=== PATIENT | male | born 1955 | race Two or more races ===

== ENCOUNTER 2019-04-13 14:08 | Emergency (ER) | payer OTHER ==
[~2019-04-13] VITALS: Ht 170.2 cm; Wt 54.0 kg
[2019-04-13 21:17] VITALS: BP 130/77
== END 2019-04-13 21:23 | disposition home or self-care (01) ==
LOC: ER 14:08
DX: H35.30 Unspecified macular degeneration (principal); H33.011 Retinal detachment with single break, right eye; E78.00 Pure hypercholesterolemia, unspecified; Z98.890 Other specified postprocedural states
CPT/HCPCS: 99283

== ENCOUNTER 2023-03-07 11:28 | Emergency (ER) | payer OTHER ==
[~2023-03-07] VITALS: Ht 165.1 cm; Wt 60.0 kg
[2023-03-07 11:38] VITALS: O2SAT 97
[2023-03-07] MEDS ORDERED: TETRACAINE 0.5% OPHTH DROPS 4ML BOTHEYE ONE (13:00)
[2023-03-07] MEDS ORDERED: FLUORESCEIN SODIUM 1MG/STRIP BOTHEYE ONE (13:00)
[2023-03-07 14:00] VITALS: BP 145/75; PULSE 66; RESP 16; TEMP 98.5
== END 2023-03-07 14:15 | disposition home or self-care (01) ==
LOC: ER 11:54
DX: H11.31 Conjunctival hemorrhage, right eye (principal); E78.00 Pure hypercholesterolemia, unspecified
CPT/HCPCS: 99283

== ENCOUNTER 2023-10-19 10:13 | Emergency (ER) | payer OTHER ==
[~2023-10-19] VITALS: Ht 167.6 cm; Wt 60.0 kg
[2023-10-19 10:36] VITALS: TEMP 97.9; O2SAT 99
[2023-10-19] MEDS ORDERED: SODIUM CHLORIDE 0.9% 1,000 ML IV ONE (11:00)
[2023-10-19 11:24] LABS: BASOPHILS % 0.9 % (0.0-2.0); EOSINOPHILS % 1.6 % (0.0-5.0); HEMATOCRIT. 41.8 % (42.0-52.0); HEMOGLOBIN. 13.8 g/dL (14.0-18.0); LYMPHOCYTES % 19.4 % (20.0-50.0); MEAN CORPUSCULAR HEMOGLOBIN 29.1 pg (28.0-32.0); MEAN PLATELET VOLUME 9.4 fl (7.4-10.4); MONOCYTES % 7.2 % (2.0-8.0); NEUTROPHILS % 70.9 % (40.0-76.0); PLATELET 150 x1000/uL (130-400); RED BLOOD CELL COUNT 4.75 mill/uL (4.7-6.1); RED CELL DISTRIBUTION WIDTH 14.3 % (11.6-14.6)
[2023-10-19 12:27] LABS: ALANINE AMINOTRANSFERASE 22 IU/L (10-49); ALBUMIN 4.6 g/dL (3.2-4.8); ASPARTATE AMINOTRANSFERASE 27 IU/L (<34); BILIRUBIN TOTAL 0.4 mg/dL (0.1-1.0); CALCIUM 9.1 mg/dL (8.7-10.4); CARBON DIOXIDE 27 mEq/L (21-32); CHLORIDE 108 mEq/L (98-107); CREATININE 0.9 mg/dL (0.6-1.3); GLUCOSE 96 mg/dL (70-105); POTASSIUM 4.4 mEq/L (3.5-5.1); PROTEIN TOTAL 7.6 g/dL (6.0-8.3); SODIUM 140 mEq/L (136-145); TROPONIN I HIGH SENSITIVITY < 4 ng/L (3.0-53); UREA NITROGEN BLOOD 23 mg/dL (9-23)
[2023-10-19 14:27] VITALS: BP 112/56; PULSE 97; RESP 16
== END 2023-10-19 14:34 | disposition home or self-care (01) ==
LOC: ER 11:08
DX: R42 Dizziness and giddiness (principal); E78.00 Pure hypercholesterolemia, unspecified; Z85.9 Personal history of malignant neoplasm, unspecified; Z98.890 Other specified postprocedural states
CPT/HCPCS: 99284; 70450; 80053; 82962; 85025; 84484; 36415; J7030

== ENCOUNTER 2023-10-30 02:25 | Emergency (ER) | payer OTHER, MEDICARE ==
[~2023-10-30] VITALS: Ht 167.6 cm; Wt 62.0 kg
[2023-10-30 02:45] VITALS: O2SAT 97
[2023-10-30] MEDS ORDERED: AMOX-494 MT (03:43)
[2023-10-30] MEDS ORDERED: GUAI-824 MT (03:43)
[2023-10-30 03:55] VITALS: BP 117/62; PULSE 88; RESP 18; TEMP 98.4
== END 2023-10-30 03:56 | disposition home or self-care (01) ==
LOC: ER 03:24
DX: J02.9 Acute pharyngitis, unspecified (principal); E78.00 Pure hypercholesterolemia, unspecified; Z85.9 Personal history of malignant neoplasm, unspecified
CPT/HCPCS: 99283

== ENCOUNTER 2024-12-22 14:30 | Emergency (ER) | payer OTHER ==
[~2024-12-22] VITALS: Ht 167.6 cm; Wt 66.0 kg
[~2024-12-22 14:30] MED LIST: AMOX-494 MT; GUAI-824 MT
[2024-12-22 14:52] VITALS: BP 103/57; PULSE 89; RESP 18; TEMP 36.9; O2SAT 98
[2024-12-22 16:47] LABS: DIFFERENTIAL COMMENT 1; HEMATOCRIT. 39.4 % (42.0-52.0); MEAN CORPUSCULAR HEMOGLOBIN 29.2 pg (28.0-32.0); MEAN CORPUSCULAR VOLUME 88.5 fL (80.0-94.0); MEAN PLATELET VOLUME 9.4 fl (7.4-10.4); PLATELET 141 x1000/uL (130-400); RED BLOOD CELL COUNT 4.46 mill/uL (4.7-6.1); RED CELL DISTRIBUTION WIDTH 14.5 % (11.6-14.6); WHITE BLOOD COUNT 25.1 x1000/uL (4.5-11.0)
[2024-12-22 16:58] LABS: PARTIAL THROMBOPLASTIN TIME 29.9 sec (23.4-31.0); PROTHROMBIN TIME 10.8 sec (9.6-11.0)
[2024-12-22 17:08] LABS: PLATELET ESTIMATE NORMAL
[2024-12-22] MEDS ORDERED: IBUP-2029 MT (17:39)
[2024-12-22] MEDS ORDERED: TOPUD PO (17:39)
== END 2024-12-22 18:11 | disposition home or self-care (01) ==
LOC: ER 14:45
DX: M79.604 Pain in right leg (principal); E78.00 Pure hypercholesterolemia, unspecified; Z90.89 Acquired absence of other organs; Z98.890 Other specified postprocedural states; Z79.899 Other long term (current) drug therapy
CPT/HCPCS: 36415; 85025; 93971; 99284

== ENCOUNTER 2024-12-27 17:49 | Emergency (ER) | payer OTHER ==
[~2024-12-27] VITALS: Ht 170.2 cm; Wt 61.2 kg
[~2024-12-27 17:49] MED LIST changes: +IBUP-2029 MT; +TOPUD PO
[2024-12-27 18:09] VITALS: O2SAT 99
[2024-12-27 18:13] VITALS: TEMP 36.9; O2SAT 98
[2024-12-27 20:55] LABS: BASOPHILS % 0.7 % (0.0-2.0); EOSINOPHILS % 3.3 % (0.0-5.0); HEMOGLOBIN. 12.3 g/dL (14.0-18.0); LYMPHOCYTES % 27.4 % (20.0-50.0); MEAN CORPUSCULAR HEMOGLOBIN 28.8 pg (28.0-32.0); MEAN CORPUSCULAR HGB CONC 33.1 g/dL (31.0-37.0); MEAN PLATELET VOLUME 8.8 fl (7.4-10.4); MONOCYTES % 12.7 % (2.0-8.0); NEUTROPHILS % 55.9 % (40.0-76.0); PLATELET 188 x1000/uL (130-400); RED BLOOD CELL COUNT 4.25 mill/uL (4.7-6.1); RED CELL DISTRIBUTION WIDTH 14.6 % (11.6-14.6); WHITE BLOOD COUNT 6.6 x1000/uL (4.5-11.0)
[2024-12-27 21:05] LABS: CHLORIDE 105 mEq/L (98-107); POTASSIUM 4.2 mEq/L (3.5-5.1); SODIUM 139 mEq/L (136-145)
[2024-12-27 21:06] LABS: CARBON DIOXIDE 28 mEq/L (21-32)
[2024-12-27 21:11] LABS: GLUCOSE 95 mg/dL (70-105)
[2024-12-27 21:15] LABS: UREA NITROGEN BLOOD 22 mg/dL (9-23)
[2024-12-27 21:58] VITALS: BP 135/73; PULSE 72; RESP 18
[2024-12-27] MEDS: IBUPROFEN 600MG TABLET PO STA (21:58)
[2024-12-27] MEDS ORDERED: FURO-151 PO (22:01)
[2024-12-27] MEDS ORDERED: NAPR-681 MT (22:01)
[2024-12-27] MEDS ORDERED: DOXY-461 MT (22:01)
== END 2024-12-27 22:08 | disposition home or self-care (01) ==
LOC: ER 17:49
DX: L03.115 Cellulitis of right lower limb (principal)
CPT/HCPCS: 36415; 73610; 73630; 80048; 83880; 85025; 93971; 99284